=== PATIENT | male | born 1955 | race Caucasian/White ===

== ENCOUNTER 2021-09-09 11:50 | Day surgery (SDC) | payer OTHER ==
[~2021-09-09] VITALS: Ht 182.9 cm; Wt 84.0 kg
[~2021-09-09 11:50] MED LIST: ERGO50000 PO; MULVITA PO; Vitamin B-Comp1 EACH PO
--- NOTE | 2021-09-09 12:08 | NUR ---
09/09/21 1208 Caridad Narayan TETRACAINE APPLIED PER ORDERS AT 1200 AND PLEDGET APPLIED AT 1202
== END 2021-09-09 14:13 | disposition home or self-care (01) ==
LOC: ORSCSDS 11:50
PROVIDERS: Ophthalmology
PROC: 08RJ3JZ Replacement of Right Lens with Synthetic Substitute, Percutaneous Approach (ICD-10-PCS; principal; 2021-09-09 13:00)
DX: H25.11 Age-related nuclear cataract, right eye (principal); I10 Essential (primary) hypertension; K21.9 Gastro-esophageal reflux disease without esophagitis; Z87.891 Personal history of nicotine dependence
CPT/HCPCS: J2001; J2250; J3010; J3301; J7040; V2632